=== PATIENT | male | born 2000 | race Caucasian/White ===

== ENCOUNTER 2021-12-16 11:40 | Emergency (ER) | payer OTHER, SELFPAY ==
[2021-12-16 12:13] VITALS: BP 152/71; PULSE 83; RESP 18; TEMP 36.6; O2SAT 98; BMI 34.4
[2021-12-16 18:18] VITALS: BP 148/72; PULSE 75; O2SAT 99
[2021-12-16] MEDS: CYCLOBENZAPRINE 10 MG TABLET PO (19:58)
[2021-12-16] MEDS: ACETAMINOPHEN 325 MG TABLET 975 MG PO (19:58)
[2021-12-16] MEDS: IBUPROFEN 400 MG TABLET 800 MG PO (19:59)
[2021-12-16 20:03] VITALS: BP 147/77; PULSE 67; RESP 18; O2SAT 97
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
== END 2021-12-16 20:03 | disposition home or self-care (01) ==
PROVIDERS: Emergency Provider Student in an Organized Health Care Education/Training Program
DX: M54.50 Low back pain, unspecified (principal)
CPT/HCPCS: 99283